=== PATIENT | male | born 1990 | race Hispanic/Latino ===

== ENCOUNTER → 2018-04-12 | Day surgery (SDC) | payer OTHER ==
[2018-04-10 09:43] LABS: BASOPHILS # (AUTO) 0.1 (0.0-0.1); EOSINOPHILS # (AUTO) 0.2 (0.0-0.4); EOSINOPHILS % 2.5 % (0.0-6.0); HEMATOCRIT 47.4 % (38.2-49.6); HEMOGLOBIN 15.9 g/dL (14.0-18.0); LYMPHOCYTES # (AUTO) 2.5 (1.0-3.2); MEAN CORPUSCULAR HEMOGLOBIN 28.1 pg (28-32); MEAN CORPUSCULAR HGB CONC 33.5 g/dL (31-35); MEAN CORPUSCULAR VOLUME 83.7 fL (81-99); NEUTROPHILS # (AUTO) 3.1 (2.1-6.9); NEUTROPHILS % 45.2 % (38.7-80.0); PLATELET COUNT 238 x10e3/uL (140-360); RED BLOOD COUNT 5.66 x10e6/uL (4.3-5.7)
[2018-04-10 10:01] LABS: BLOOD UREA NITROGEN 18 mg/dL (7-26); BUN/CREATININE RATIO 20 (6-25); CALCIUM 9.6 mg/dL (8.4-10.2); CARBON DIOXIDE 26 mmol/L (22-29); CHLORIDE 102 mmol/L (98-107); CREATININE, SERUM 0.88 mg/dL (0.72-1.25); EST GLOMERULAR FILTRATION RATE > 60 ML/MIN (60-); GLUCOSE 99 mg/dL (74-118); SODIUM 135 mmol/L (136-145)
[~2018-04-12] MED LIST: BUPIVACAINE 0.25%/EPI 30ML SDV INJ ONE; CEFAZOLIN SOD 1 GM VIAL ONE; DEXAMETHASONE SOD PHOS INJ 4 MG/ML VIAL ONE; FENTANYL CITRATE/PF 100MCG/2 ML INJ ONE; GLYCOPYRROLATE INJ 1MG/ 5 ML SYR ONE; KETOROLAC TROMETHAMINE 30 MG/ML VIAL ONE; LIDOCAINE HCL 2% JELLY 5 ML TUBE ONE; LIDOCAINE HCL 2% LOCAL INJ 5 ML SDV VIAL INJ ONE; METOPROLOL TART25 MG PO; MIDAZOLAM HCL 2 MG/2 ML VIAL ONE; MORPHINE SULFATE INJ 10 MG/ML ONE; NEOSTIGMINE 5 MG/5ML SYR ONE; ONDANSETRON HCL INJ 2MG/ML 2ML 2 MG/ML VIAL ONE; PRILOSEC OTC20 MG PO; PROPOFOL IV EMULSION 10 MG/ML 20 ML VIAL ONE; ROCURONIUM BROMIDE 10 MG/ML 5ML VIAL ONE; SEVOFLURANE INHAL SOLN 250 ML PEN BTL ONE; TYLENOL EXTRA500 MG PO
[2018-04-12 13:15] VITALS: BP 131/82
--- NOTE | 2018-04-12 13:15 | Operative Report ---
DATE OF PROCEDURE: April 12, 2018 PREOPERATIVE DIAGNOSES 1. Umbilical hernia. 2. Bilateral inguinal hernia. POSTOPERATIVE DIAGNOSES 1. Umbilical hernia. 2. Ventral epigastric hernia. 3. Bilateral inguinal hernia. PROCEDURES PERFORMED 1. Repair of umbilical hernia with Proceed ventral patch, medium size. 2. Repair of epigastric ventral hernia with mesh. 3. Repair of right inguinal hernia with Ultra Pro hernia system, oval type. ANESTHESIA: General. ESTIMATED BLOOD LOSS: Minimal. DRAINS: None. COMPLICATIONS: None. INDICATIONS AND FINDINGS: The patient is a 28-year-old male who was referred to the office for repair of umbilical and inguinal hernia. He had developed pain after lifting at work in the umbilicus, as well as in the groin. 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 He preoperatively underwent robotic nephrectomy of the renal mass, and then was cleared by urology for hernia repair. INTRAOPERATIVE FINDINGS: The patient had an umbilical hernia and epigastric hernia. There was a small defect about 4 fingerbreadths superior to the umbilicus clearly away from the umbilicus and an inguinal hernia that consisted of the direct defect. The Proceed ventral patch was used, medium size, was used to repair the umbilical hernia. The epigastric hernia was repaired primarily, and reinforced with the strap of the Proceed ventral patch since the hernia was small, but it did contain significant amounts of properitoneal fat and this strap was used to reinforce the primary closure with 0 Ethibond. The inguinal hernia was repaired with the Ultra Pro hernia system, oval type. DESCRIPTION OF PROCEDURE: With the patient lying on the operating table in the supine position and after administration of general endotracheal anesthesia, he was prepped and draped for repair of a umbilical and right inguinal hernia. The procedure was begun by making a semicircular incision inferior to the umbilicus. The dissection was carried down through skin and subcutaneous tissue. We identified 2 hernias, one coming from the epigastric area and another one coming from the umbilical site. Both of them contained properitoneal fat. The umbilical hernia sac was excised. The abdominal cavity was entered. The ventral patch, medium size was deployed flat against the abdominal wall and secured to the local tissue with strap. I put in a series of interrupted 2-0 Ethibond sutures. We cut the straps. Then we dissected the epigastric hernia, which was mainly properitoneal fat through a small 1-cm defect. We closed the defect primarily using 0 Ethibond, and then reinforced the suture line with a piece of cut strap from the Proceed ventral patch, and secured it there with interrupted 2-0 Ethibond sutures. We then isolated the umbilical hernia from the field. Then proceeded with the repair of the inguinal hernia. Pre-emptive anesthesia was given with 0.25% Marcaine with epinephrine as an ilioinguinal nerve block and an incisional nerve block. A transverse groin incision was made and deepened through the skin and subcutaneous tissue until the external oblique aponeurosis was identified. This was incised along the course of its fibers transecting the external inguinal ring. Mid and lateral leads were developed. The cord was mobilized at the level of the pubic tubercle and retracted away from the operative field by a Amparo drain. The cremaster veil was incised. There was no indirect hernia sac. There was a direct hernia seen. The transversalis fascia was incised. Then the preperitoneal space was entered. A pocket was created using blunt dissection to accommodate the mesh. Then the mesh was secured to the local tissues using a series of interrupted 2-0 Ethibond sutures. The wound was irrigated. Bleeding points were cauterized. The ilioinguinal nerve was sacrificed to prevent any neuroma formation. Then the Ultra Pro hernia system, oval type was deployed with the underlay part of the mesh over the direct space and the overlay part of the mesh over the inguinal canal floor. A slit was made to accommodate the cord. The mesh was secured to the local tissues using a series of interrupted 2-0 Ethibond suture. The wound was irrigated. Bleeding points were controlled with cautery. After the sponge and instrument count was pronounced correct, we closed the wound using 2-0 Vicryl for the external oblique aponeurosis, 2-0 plain catgut for the subcutaneous tissues and the skin was closed using pia. As an addendum to the umbilical repair, I infiltrated both repairs, as well as the skin with 0.25% Marcaine with epinephrine at the umbilical site. The patient tolerated the procedure well, and was taken to the recovery room in stable condition. Job#: [id number] RI
== END | disposition home or self-care (01) ==
LOC: OR 07:05
PROVIDERS: ATTEND Surgery
DX: K42.9 Umbilical hernia without obstruction or gangrene (principal); K40.90 Unilateral inguinal hernia, without obstruction or gangrene, not specified as recurrent; K43.9 Ventral hernia without obstruction or gangrene; I25.10 Atherosclerotic heart disease of native coronary artery without angina pectoris; I10 Essential (primary) hypertension; K21.9 Gastro-esophageal reflux disease without esophagitis; Z01.810 Encounter for preprocedural cardiovascular examination; Z01.812 Encounter for preprocedural laboratory examination; Z68.33 Body mass index [BMI] 33.0-33.9, adult; Z90.5 Acquired absence of kidney; Z87.891 Personal history of nicotine dependence
CPT/HCPCS: 36415; 49505; 49585; 80048; 85025; 93005; C1781 ×2; J0690; J1100; J1885; J2001 ×2; J2250; J2270; J2405; J2704; J3490

== ENCOUNTER → 2018-08-16 | Day surgery (SDC) | payer OTHER ==
[2018-08-15 11:46] LABS: BILIRUBIN,URINE NEGATIVE (NEGATIVE); CLARITY,URINE SL CLOUDY (CLEAR); COLOR,URINE YELLOW (YELLOW); KETONES,URINE NEGATIVE (NEGATIVE); LEUKOCYTE ESTERASE ,URINE NEGATIVE (NEGATIVE); NITRITE,URINE NEGATIVE (NEGATIVE); PROTEIN,URINE DIPSTICK TRACE (NEGATIVE); URINE UROBILINOGEN 0.2 mg/dL (0.2 - 1)
[2018-08-15 12:04] LABS: BASOPHILS # (AUTO) 0.1 (0.0-0.1); BASOPHILS % 0.8 % (0.0-1.0); EOSINOPHILS # (AUTO) 0.2 (0.0-0.4); EOSINOPHILS % 2.4 % (0.0-6.0); HEMATOCRIT 49.9 % (38.2-49.6); HEMOGLOBIN 16.6 g/dL (14.0-18.0); LYMPHOCYTES # (AUTO) 2.7 (1.0-3.2); LYMPHOCYTES % 36.3 % (18.0-39.1); MEAN CORPUSCULAR HEMOGLOBIN 27.7 pg (28-32); MEAN CORPUSCULAR HGB CONC 33.3 g/dL (31-35); MEAN CORPUSCULAR VOLUME 83.3 fL (81-99); MONOCYTES # (AUTO) 0.6 (0.2-0.8); MONOCYTES % 8.5 % (4.4-11.3); NEUTROPHILS # (AUTO) 3.8 (2.1-6.9); NEUTROPHILS % 51.9 % (38.7-80.0); PLATELET COUNT 247 x10e3/uL (140-360); RED BLOOD COUNT 5.99 x10e6/uL (4.3-5.7); RED CELL DISTRIBUTION WIDTH 12.2 % (11.7-14.4)
[2018-08-15 12:26] LABS: ANION GAP 12.4 mmol/L (8-16); BLOOD UREA NITROGEN 14 mg/dL (7-26); BUN/CREATININE RATIO 16 (6-25); CALCIUM 10.1 mg/dL (8.4-10.2); CARBON DIOXIDE 25 mmol/L (22-29); CHLORIDE 101 mmol/L (98-107); CREATININE, SERUM 0.85 mg/dL (0.72-1.25); EST GLOMERULAR FILTRATION RATE > 60 ML/MIN (60-); GLUCOSE 98 mg/dL (74-118); POTASSIUM 4.4 mmol/L (3.5-5.1); SODIUM 134 mmol/L (136-145)
--- NOTE | 2018-08-15 12:56 | Diagnostic Imaging Report ---
EXAMINATION: CHEST 2 VIEWS INDICATION: Pre-operative radiograph. COMPARISON: None FINDINGS: TUBES and LINES: None. LUNGS: Lungs are well inflated. There is no evidence of pneumonia or pulmonary edema. PLEURA: No pleural effusion or pneumothorax. HEART AND MEDIASTINUM: The cardiomediastinal silhouette is unremarkable. BONES AND SOFT TISSUES: No acute osseous abnormality. UPPER ABDOMEN: No free air under the diaphragm. IMPRESSION: No acute radiographic abnormality. Signed by: Dr. Chance Gonzales MD on 08/15/2018 12:53 PM
[~2018-08-16] MED LIST changes: +ACETAMINOPHEN 1000 MG/100 ML IV ONE; +ALLEGRA ALLERG180 MG PO; +CEFAZOLIN SOD 1 GM/NS 50ML 50 ML IV ONE; +HEPARIN SOD (PORCINE) 5,000 UNIT/ML VIAL ONE; +KETAMINE HCL INJ 50 MG/ML 10 ML VIAL ONE; -LIDOCAINE HCL 2% JELLY 5 ML TUBE ONE; -MORPHINE SULFATE INJ 10 MG/ML ONE; -NEOSTIGMINE 5 MG/5ML SYR ONE; +PHENYLEPHRINE HCL 1% 10 MG/ML VIAL ONE; -ROCURONIUM BROMIDE 10 MG/ML 5ML VIAL ONE; +SCOPOLAMINE 1.5 MG PATCH ONE
--- OUTSIDE RECORDS SUMMARY | 2018-08-16 05:42 | XMS REPORT ---
[facility] Address Unknown Phone Unavailable Care Team Providers Care Sales Technician Name Role Phone CHICO ALVAREZ Unavailable Unavailable Problems This patient has no known problems. Allergies, Adverse Reactions, Alerts This patient has no known allergies or adverse reactions. Medications This patient has no known medications. Results Test Description Test Time Test Comments Text Results Atomic Results Result Comments CHEST 2 VIEWS 2018-08-15 12:50:00 [place] [address] Patient Name: ARIC GODWIN MR #: [id number] : 1990 Age/Sex: 28/M Req #: [id number] [facility] Physician: Ordered by: CHICO ALVAREZ MD Report #: [id number] Location: OR Room/Bed: Procedure: [id number] DX/CHEST 2 VIEWS Exam Date: 08/15/18 Exam Time: 1140 REPORT STATUS: Signed EXAMINATION: CHEST 2 VIEWS INDICATION: Pre-operative radiograph. COMPARISON: None FINDINGS: TUBES and LINES: None. LUNGS: Lungs are well inflated. There is no evidence of pneumonia or pulmonary edema. PLEURA: No pleural effusion or pneumothorax. HEART AND MEDIASTINUM: The cardiomediastinal silhouette is unremarkable. BONES AND SOFT TISSUES: No acute osseous abnormality. UPPER ABDOMEN: No free air under the diaphragm. IMPRESSION: No acute radiographic abnormality. Signed by: Dr. Adrian Watson MD on 08/15/2018 12:53 PM Dictated By: ADRIAN WATSON MD [id number] Transcribed By: SALVADOR on 08/15/18 1253 COPY TO: CHICO ALVAREZ MD
--- NOTE | 2018-08-16 11:15 | Operative Report ---
DATE OF PROCEDURE: 08/16/2018 SURGEON: Sher Lemus MD PREOPERATIVE DIAGNOSIS: Left inguinal hernia. POSTOPERATIVE DIAGNOSIS: Left inguinal hernia. PROCEDURE PERFORMED: Repair of left inguinal hernia. WRAPPER COUNTER: ABIMAEL Farnsworth. ESTIMATED BLOOD LOSS: Minimal. DRAINS: None. COMPLICATION: None. INDICATION AND FINDINGS: The patient is a 28-year-old male, admitted for repair of left inguinal hernia. He had undergone by me previously simultaneously repair of right inguinal and umbilical hernia, and now he was admitted for completion of staged repair. INTRAOPERATIVE FINDINGS: The patient had an indirect defect. There was no femoral herniation or inguinal herniation. The Ultrapro hernia system oval type was deployed. The patient was given preoperative heparin and pneumatic boots were placed because of a history of pulmonary embolus several months ago. DESCRIPTION OF PROCEDURE: With the patient lying on the operative table in the supine position, after administration of general endotracheal anesthesia, he was prepped and draped for repair of left inguinal hernia. Local incisional block was given with 0.25% Marcaine with epinephrine and then an incision was made and carried down through the skin, subcutaneous tissue, until this Timi fascia was identified; this was incised along the course of the fibers, transecting the external inguinal ring. Medial and lateral leaves were developed. The cord was mobilized at the level of the pubic tubercle and retracted away from the operative field by [place] drain. The cremaster fiber was incised and an indirect hernia sac was searched for and none was found. There was lipoma of the cord that was highly ligated twice with 0 silk and transected. Then, the transversalis fascia was incised and a pocket was created bluntly using blunt dissected to accommodate the mesh. Then, the Ultrapro hernia system was deployed with the underlay part of the mesh over the direct space and the overlay part of the mesh over the inguinal canal floor. A slit was made to accommodate the cord and then the mesh was secured to local tissues using a series of interrupted 2-0 Ethibond sutures. The wound was irrigated. Bleeding points were cauterized. Then, the wound was closed in layers using 2-0 Vicryl for the external oblique aponeurosis, 2-0 plain catgut for the soft tissues, and the skin was closed using pia. Sterile dressing was applied. The patient was given postop instruction, he was advised to take aspirin enteric-coated 325 for 5 days postoperatively. MD ARASH Rice/JANELLE /[id number]
[2018-08-16 11:50] VITALS: BP 116/72
== END | disposition home or self-care (01) ==
LOC: OR 05:37
PROVIDERS: ATTEND Surgery
DX: K40.90 Unilateral inguinal hernia, without obstruction or gangrene, not specified as recurrent (principal); D17.6 Benign lipomatous neoplasm of spermatic cord; I25.10 Atherosclerotic heart disease of native coronary artery without angina pectoris; I10 Essential (primary) hypertension; K21.9 Gastro-esophageal reflux disease without esophagitis; Z01.810 Encounter for preprocedural cardiovascular examination; Z01.812 Encounter for preprocedural laboratory examination; Z01.818 Encounter for other preprocedural examination; Z90.5 Acquired absence of kidney; Z86.711 Personal history of pulmonary embolism; Z85.528 Personal history of other malignant neoplasm of kidney; Z87.891 Personal history of nicotine dependence
CPT/HCPCS: 36415; 49505; 71046; 80048; 81003; 85025; 93005; C1781; J0131; J0690 ×2; J1100; J1644; J1885; J2001; J2250; J2370; J2405; J2704; J3490